=== PATIENT | female | born 1955 | race Caucasian/White ===

== ENCOUNTER 2020-07-26 08:00 | Emergency (ER) | payer MEDICARE, OTHER ==
[~2020-07-26] VITALS: Ht 167.6 cm; Wt 88.0 kg
--- NOTE | 2020-07-26 08:29 | NUR ---
FIRST CONTACT WITH PT. PT C/O LEFT FLANK PAIN RADIATING TO LEFT ABD AREA WITH NAUSEA AND VOMITING X 2 DAYS. PT DENIES ANY URINARY SYMPTOMS. PT'S AOX4. RESPS EVEN AND UNLABORED. BP/SPO2 MONITORS IN PLACE. CALL LIGHT WITHIN REACH. EDMD AT BEDSIDE EVALUATING AT THIS TIME.
[2020-07-26] MEDS ORDERED: ONDANSETRON 2MG/ML, 2ML IVPush ONE (08:30)
[2020-07-26] MEDS ORDERED: SODIUM CHLORIDE FLUSH 10ML SYR IVF ONE (08:30)
--- NOTE | 2020-07-26 08:30 | NUR ---
PT STATED "I CAN'T PEE NOW." URINE CUP IN ROOM. PT AWARE OF UA.
[2020-07-26] MEDS ORDERED: ONDANSETRON 2MG/ML, 2ML ONE (08:33)
[2020-07-26] MEDS ORDERED: MORPHINE SULFATE 4 MG/ML, 1ML ONE ×2 (08:33→09:54)
--- NOTE | 2020-07-26 08:36 | NUR ---
receivced bedside report from NIKHIL Beltran.
--- NOTE | 2020-07-26 08:38 | NUR ---
report given to aria varela.
[2020-07-26] MEDS: MORPHINE SULFATE 4 MG/ML, 1ML IVPush PRN ×2 (08:40→09:56)
--- NOTE | 2020-07-26 08:42 | NUR ---
medication administered per order. nadn. pt refuses blanket at this time. no other needs requested at this time.
[2020-07-26 08:43] LABS: BASOPHILS # (AUTO) 0.01 x10^3/uL (0-0.1); BASOPHILS % (AUTO) 0 % (0-1); EOSINOPHILS # (AUTO) 0.01 x10^3/uL (0-0.4); EOSINOPHILS % (AUTO) 0 % (1-7); LYMPHOCYTES # (AUTO) 0.92 x10^3/uL (1-3.4); LYMPHOCYTES % (AUTO) 6 % (22-44); MD NO; MEAN CORPUSCULAR HEMOGLOBIN 31.8 pg (27.0-34.8); MEAN CORPUSCULAR HGB CONC 33.1 g/dL (32.4-35.8); MEAN PLATELET VOLUME 9.1 fL (7.4-10.4); MONOCYTES # (AUTO) 0.35 x10^3/uL (0.2-0.8); MONOCYTES % (AUTO) 3 % (2-9); NEUTROPHILS # (AUTO) 13.02 x10^3/uL (1.8-6.8); NEUTROPHILS % (AUTO) 91 % (42-75); PLATELET COUNT 261 x10^3/uL (130-400); RED BLOOD COUNT 4.32 x10^6/uL (3.82-5.3); RED CELL DISTRIBUTION WIDTH 12.3 % (9.6-15.2)
[2020-07-26 08:55] LABS: ALANINE AMINOTRANSFERASE 27 U/L (12-78); ALBUMIN 3.7 g/dL (3.4-5.0); ANION GAP 6 mmol/L (5-15); CHLORIDE 113 mmol/L (98-107)
[2020-07-26 08:58] LABS: ALKALINE PHOSPHATASE 94 U/L (45-117); BILIRUBIN,TOTAL 0.4 mg/dL (0.2-1.0); CREATININE 1.11 mg/dL (0.55-1.02); TOTAL PROTEIN 7.1 g/dL (6.4-8.2)
[2020-07-26 09:09] LABS: MICROSCOPIC INDICATED
--- NOTE | 2020-07-26 09:57 | NUR ---
medication administered per order. nadn. vss. will continue to monitor
[2020-07-26] MEDS ORDERED: KETOROLAC 30 MG/1 ML ONE (10:26)
[2020-07-26] MEDS ORDERED: KETOROLAC 30 MG/1 ML IVPush ONE (10:30)
[2020-07-26] MEDS ORDERED: HYDROcodone/APAP 5/325 TABLET PO ONE (10:30)
--- NOTE | 2020-07-26 10:36 | NUR ---
pt resting on [facility]. nadn med administered per order.
--- NOTE | 2020-07-26 11:14 | NUR ---
pt resting on gurney. peña. pt will call friend for d/c. pt still "groggy" from [facility]
[2020-07-26 11:46] VITALS: BP 116/52
--- NOTE | 2020-07-26 11:46 | NUR ---
pt resting on gurney. pt much more coherent. piv d/c with tip intact. pressure dressing applied. nadn. awaiting friend for ride.
--- NOTE | 2020-07-26 11:54 | NUR ---
Patient/Caregiver given discharge instructions and they have confirmed that they understand the instructions. Patient ambulatory with steady gait. pt left with all personal belongings.
== END 2020-07-26 11:57 | disposition home or self-care (01) ==
LOC: ED 09:33
DX: N13.2 Hydronephrosis with renal and ureteral calculous obstruction (principal); R31.9 Hematuria, unspecified; R11.2 Nausea with vomiting, unspecified; R10.9 Unspecified abdominal pain
CPT/HCPCS: 36415; 74176; 80053; 81001; 83690; 85025; 87086; 96374; 96375; 96376; 99285; J1885; J2270; J2405